=== PATIENT | male | born 1960 | race Caucasian/White ===

== ENCOUNTER → 2017-02-13 | Outpatient (CLI) | payer BC ==
[~2017-02-13] MED LIST: SALINE FLUSH 10ml SYRINGE ONE
--- NOTE | 2017-02-13 13:53 | DI ---
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 Findings: Patient continues to demonstrate activity about some of the larger joints some particularly in the knees more prominently on the medial aspect of the left side. Mildly increased activity seen about the shoulders and sternoclavicular joints. No particular suggestion of bony metastatic disease is appreciated. Impression: Degenerative change directly prominent about the medial aspect of the left knee without definitive suggestion of bony metastatic disease. .
== END ==
LOC: IMA 08:26
PROVIDERS: ATTEND Internal Medicine Hematology & Oncology
DX: C34.11 Malignant neoplasm of upper lobe, right bronchus or lung (principal); M89.8X6 Other specified disorders of bone, lower leg
CPT/HCPCS: 78306; A9503

== ENCOUNTER → 2017-04-10 | Outpatient (CLI) | payer BC ==
[2017-04-10 13:05] LABS: ALBUMIN 3.7 G/DL (3.5-5.0); ALBUMIN/GLOBULIN RATIO 1.2 RATIO (1.1-2.2); ALKALINE PHOSPHATASE 122 U/L (38-126); ALT (SGPT) 35 U/L (21-72); ANION GAP 11 MEQ/L (5-15); AST (SGOT) 28 U/L (17-59); BUN/CREATININE RATIO 13 RATIO (6-26); CHLORIDE 99 MEQ/L (98-107); CO2 - CARBON DIOXIDE 31 MEQ/L (22-30); CREATININE 0.7 MG/DL (0.8-1.5); GLOMERULAR FILTRATION RATE 115; GLUCOSE 89 MG/DL (75-110); POTASSIUM 3.7 MEQ/L (3.6-5); SODIUM 141 MEQ/L (134-144); TOTAL PROTEIN 6.8 G/DL (6.3-8.2)
== END ==
LOC: LABN 12:48
PROVIDERS: ATTEND Internal Medicine Hematology & Oncology
DX: C34.11 Malignant neoplasm of upper lobe, right bronchus or lung (principal)
CPT/HCPCS: 80053